=== PATIENT | male | born 1995 | race Caucasian/White ===

== ENCOUNTER 2021-08-24 22:19 | Emergency (ER) | payer SELFPAY ==
[~2021-08-24] VITALS: Ht 177.8 cm; Wt 75.0 kg
[2021-08-24 22:37] VITALS: BP 133/71
== END 2021-08-24 23:05 | disposition home or self-care (01) ==
LOC: ER 22:19
DX: F10.229 Alcohol dependence with intoxication, unspecified (principal); Y90.9 Presence of alcohol in blood, level not specified
CPT/HCPCS: 82962; 99283